=== PATIENT | male | born 1975 | race Caucasian/White ===

== ENCOUNTER → 2017-03-31 | Outpatient (CLI) | payer OTHER | LOC: EMI 09:43 | DX: R29.898 Other symptoms and signs involving the musculoskeletal system (principal); M51.26 Other intervertebral disc displacement, lumbar region; Z98.1 Arthrodesis status; M99.73 Connective tissue and disc stenosis of intervertebral foramina of lumbar region; M99.74 Connective tissue and disc stenosis of intervertebral foramina of sacral region | CPT/HCPCS: 72158; A9577; J7050 ==

== ENCOUNTER → 2020-08-07 | Outpatient (CLI) | payer OTHER ==
[~2020-08-07] MED LIST: ECOTRIN81 MG PO
== END ==
LOC: HEART 5 10:56
DX: R07.9 Chest pain, unspecified (principal)

== ENCOUNTER → 2021-03-05 | Outpatient (CLI) | payer OTHER ==
[~2021-03-05] MED LIST changes: +ALLOPURINOL100 MG PO; +CEFDINIR300 MG PO; +LISINOPRIL20 MG PO; +LOW DOSE ASPIRI81 MG PO; +NEURONTIN800 MG PO; +OXYCODONE HCL30 MG PO; +PRILOSEC OTC20 MG PO; +SINGULAIR10 MG PO; +SOMA350 MG PO; +VENTOLIN HFA 66.7 GM INH
[2021-03-05 10:45] LABS: HEMOGLOBIN 16.6 gm/dl (14.0-17.5); RED BLOOD COUNT 5.59 M/UL (4.20-5.50); WHITE BLOOD COUNT 6.5 K/UL (4.5-11.0)
[2021-03-05 10:59] LABS: BUN/CREATININE RATIO 11 (0-10)
== END ==
LOC: OPSV2 09:00
PROVIDERS: Podiatrist Foot & Ankle Surgery
DX: Z01.818 Encounter for other preprocedural examination (principal); M72.2 Plantar fascial fibromatosis
CPT/HCPCS: 80048; 85027; 93005

== ENCOUNTER → 2021-03-08 | Day surgery (SDC) | payer OTHER | END | disposition home or self-care (01) | LOC: OR 05:37 | DX: M72.2 Plantar fascial fibromatosis (principal); M77.32 Calcaneal spur, left foot; M89.9 Disorder of bone, unspecified; I10 Essential (primary) hypertension; E78.5 Hyperlipidemia, unspecified; J44.9 Chronic obstructive pulmonary disease, unspecified; K21.9 Gastro-esophageal reflux disease without esophagitis; G89.4 Chronic pain syndrome; H66.93 Otitis media, unspecified, bilateral; Z88.5 Allergy status to narcotic agent; Z79.82 Long term (current) use of aspirin; Z79.899 Other long term (current) drug therapy | CPT/HCPCS: 73620; 76000; J0690; J0702; J1100; J1885; J2001; J2250; J2405; J2704; J2795; J3010; J3301; J3370; J7120; Q4133 ==